=== PATIENT | male | born 1980 | race Caucasian/White ===

== ENCOUNTER → 2025-03-09 | Day surgery (SDC) | payer BC ==
[2025-03-05 09:28] LABS: BASOPHILS % 0.3 % (0.0-1.0); EOSINOPHILS % 1.0 % (0.0-6.0); LYMPHOCYTES % 24.4 % (18.0-39.1); MONOCYTES % 5.2 % (4.4-11.3); NEUTROPHILS % 68.7 % (38.7-80.0); RED CELL DISTRIBUTION WIDTH 13.3 % (11.7-14.4)
[2025-03-05 09:52] LABS: EST GLOMERULAR FILTRATION RATE 111.0 ML/MIN (>=60)
[~2025-03-09] MED LIST: ACETAMINOPHEN 1000 MG/100 ML 100 ML IV ONE; DEXAMETHASONE SOD PHOS INJ 4 MG/ML SDV ONE; FENTANYL CITRATE/PF 100MCG/2 ML INJ ONE; LIDOCAINE HCL 2% LOCAL INJ 5 ML SDV VIAL INJ ONE; MIDAZOLAM HCL 2 MG/2 ML VIAL ONE; MIDAZOLAM HCL 5 MG/ML VIAL ONE; ONDANSETRON HCL INJ 2MG/ML 2ML 2 MG/ML VIAL ONE; PROPOFOL IV EMULSION 10 MG/ML 20 ML VIAL ONE; TYLENOL EXTRA500 MG PO
[2025-03-09] MEDS: LACTATED RINGER'S 1,000 ML ONE (13:26)
[2025-03-09] MEDS: CEFAZOLIN SODIUM 2 GM ONE (13:26)
[2025-03-09] MEDS: HYDROMORPHONE 1MG/1ML INJ ONE (15:10)
[2025-03-09] MEDS: ONDANSETRON HCL INJ 2MG/ML 2ML 2 MG/ML VIAL ONE (15:15)
[2025-03-09 16:10] VITALS: BP 146/84; PULSE 71; RESP 18; O2SAT 98
== END | disposition home or self-care (01) ==
LOC: OR 11:58
PROVIDERS: ATTEND Orthopaedic Surgery
DX: S83.271A Complex tear of lateral meniscus, current injury, right knee, initial encounter (principal); S82.015A Nondisplaced osteochondral fracture of left patella, initial encounter for closed fracture; S83.241A Other tear of medial meniscus, current injury, right knee, initial encounter; M22.41 Chondromalacia patellae, right knee; M65.161 Other infective (teno)synovitis, right knee; M67.51 Plica syndrome, right knee; M17.12 Unilateral primary osteoarthritis, left knee; E66.9 Obesity, unspecified; K21.9 Gastro-esophageal reflux disease without esophagitis; K28.9 Gastrojejunal ulcer, unspecified as acute or chronic, without hemorrhage or perforation; X58.XXXA Exposure to other specified factors, initial encounter; Z01.810 Encounter for preprocedural cardiovascular examination; Z01.812 Encounter for preprocedural laboratory examination; Z01.818 Encounter for other preprocedural examination
CPT/HCPCS: 27599; 29882; 36415; 71046; 80053; 85025; 93005; C1713 ×3; C1729; J0131; J1100; J1171; J2003; J2250; J2405; J2704; J3010; J7121; 76000